=== PATIENT | male | born 1960 | race Caucasian/White ===

== ENCOUNTER → 2024-11-20 13:56 | Outpatient (REF) | payer OTHER, SELFPAY | LOC: RAD 13:56 | PROVIDERS: ATTENDING PHYSICIAN Family Medicine | DX: Z00.00 Encounter for general adult medical examination without abnormal findings (principal); Z15.89 Genetic susceptibility to other disease; M54.9 Dorsalgia, unspecified | CPT/HCPCS: 72052; 72072; 72110 ==